=== PATIENT | female | born 1995 | race African-American/Black ===

== ENCOUNTER 2020-11-22 00:03 | Emergency (ER) | payer MEDICAID ==
--- NOTE | 2020-11-22 00:56 | EDM.PDOC ---
ED HPI GENERAL MEDICAL PROBLEM - General Chief Complaint: Lower Extremity Injury/Pain Stated Complaint: RIGHT ANKLE PAIN Time Seen by Provider: 11/22/20 00:53 Source of Information: Reports: Patient History Limitations: Reports: No Limitations - History of Present Illness INITIAL COMMENTS - FREE TEXT/NARRATIVE: Mrs. Mabry is a very pleasant 25-year-old woman who now presents the ED after twisting her right ankle around 16:00 to 17:00 this evening, when she missed a step while climbing down a stepladder. Other than right ankle pain, she is otherwise uninjured. She states that she has previously fractured her right ankle. The patient states that she has been taking Tylenol PM for her pain, without adequate relief. She has not iced her ankle. Here in the ED, the patient is found to be hemodynamically stable, afebrile, saturating 98% on room air. She appears to be comfortable, in no acute distress. Prior to this evening, the patient denies having a recent fever, chills, sore throat, ear pain, nasal or sinus congestion, cough, dyspnea, chest pain, palpitations, nausea, vomiting, constipation, diarrhea, abdominal pain, urinary symptoms, recent weight gain or weight loss, recent bloody bowel movements or black bowel movements, recent joint aches, headaches, or rashes. The patient's PCP is ARELIS Costello, at the [facility]. Right Ankle Pain Score (Numeric/FACES): 10 - Related Data Allergies Allergy/AdvReac Type Severity Reaction Status Date / Time No Known Allergies Allergy Verified 11/22/20 00:14 Home Meds: Home Meds ARIPiprazole [Abilify] 5 mg PO DAILY 11/22/20 [History] FLUoxetine [PROzac] 10 mg PO DAILY 11/22/20 [History] Sertraline [Zoloft] 25 mg PO DAILY 11/22/20 [History] Past Medical History Psychiatric History: Reports: Anxiety, Depression Endocrine/Metabolic History: Reports: Obesity/BMI 30+ - Past Surgical History HEENT Surgical History: Reports: Adenoidectomy, Oral Surgery (dental extractions), Tonsillectomy Female Surgical History: Reports: Section (x 2) Social & Family History - Tobacco Use Tobacco Use Status *Q: Never Tobacco User - Alcohol Use Alcohol Use History: Yes Alcohol Use Frequency: Socially - Recreational Drug Use Recreational Drug Use: No - Living Situation & Occupation Living situation: Reports: , with Spouse, with Family (2 kids) Occupation: Unemployed Review of Systems - Review of Systems Review Of Systems: Comprehensive ROS is negative, except as noted in HPI. ED EXAM, GENERAL - Physical Exam Exam: See Below Exam Limited By: No Limitations General Appearance: Alert, WD/WN, No Apparent Distress Extremities: Other (No visible abnormality to the right ankle, when compared to the left, such as swelling, erythema, ecchymosis, or abrasion. The patient reports tenderness to palpation over the medial malleolus, with no significant tenderness over the lateral malleolus, the anterior syndesmosis, or posterior syndesm) Course - Vital Signs Last Recorded V/S: Last Vital Signs Temp 36.6 C 11/22/20 00:11 Pulse 95 11/22/20 00:11 Resp 18 11/22/20 00:11 BP 127/83 11/22/20 00:11 Pulse Ox 98 11/22/20 00:11 - Orders/Labs/Meds Orders: Active Orders 24 hr Category Date Time Status Ankle Min 3V Rt [CR] Stat Exams 11/22/20 00:32 Taken DME for Discharge [COMM] Stat Oth 11/22/20 01:02 Ordered - Re-Assessments/Exams Free Text/Narrative Re-Assessment/Exam: 11/22/20 00:56 As above, the patient twisted her right ankle when she missed a step coming down a stepladder earlier this evening. There is no visible abnormality to the ankle, but she reports tenderness over the medial malleolus. X-rays were ordered at triage. 4-view radiographs of the right ankle appear to be grossly normal, with no fractures or dislocations identified. Formal read per the Radiologist pending. The patient appears to have a mild sprain. I will order an Aircast/stirrup splint and have the patient ambulate in that for about a week. She should ice and elevate her right ankle for the next few days to help minimize swelling. She can take [id number] ibuprofen as needed for discomfort. If she continues to have significant discomfort after 2 weeks, she should follow-up with an Orthopedic Surgeon - she stated that she already has one. Departure - Departure Time of Disposition: 01:10 Disposition: Home, Self-Care 01 Condition: Good Clinical Impression: Right ankle sprain - Discharge Information *PRESCRIPTION DRUG MONITORING PROGRAM REVIEWED*: Not Applicable *COPY OF PRESCRIPTION DRUG MONITORING REPORT IN PATIENT PONCHO: Not Applicable Referrals: Parul Henderson [Ordering Only Provider] - Forms: ED Department Discharge Additional Instructions: You were seen in the emergency room after twisting your right ankle while climbing down a stepladder yesterday afternoon. Work-up in the ER included x-rays of your right ankle, which returned to normal, with no broken bones or dislocations seen. Based on your history, physical examination, and ER x-rays, you have most likely sprained your right ankle. We recommend that you ice and elevate your right ankle as much as possible over the next few days, to help minimize swelling. You may take [id number]-[id number] ibuprofen, 3 tablets (600 mg) up to every 8 hours, with food, as needed for discomfort. You have been fitted with an air/stirrup splint. We recommend that you put this on every morning, and remove it at bedtime. We recommend that you wear it for approximately 1 week, after which time you should come out of it and start walking on your own without it. At that time, you should expect to have some discomfort, however, if you continue to have discomfort after 2 weeks, we recommend that you follow-up with your Orthopedic Surgeon. If any other problems, please do not hesitate to return to the ER. Sepsis Event Note (ED) - Evaluation Sepsis Screening Result: No Definite Risk - Focused Exam Vital Signs: Vital Signs Temp Pulse Resp BP Pulse Ox 11/22/20 00:11 36.6 C 95 18 127/83 98 - My Orders Last 24 Hours: My Active Orders 11/22/20 00:32 Ankle Min 3V Rt [CR] Stat 11/22/20 01:02 DME for Discharge [COMM] Stat - Assessment/Plan Last 24 Hours: My Active Orders 11/22/20 00:32 Ankle Min 3V Rt [CR] Stat 11/22/20 01:02 DME for Discharge [COMM] Stat
--- NOTE | 2020-11-22 09:01 | CR ---
Right ankle: 4 views of the right ankle were obtained. Comparison: No prior ankle study is available. Ankle mortise is symmetric. No acute fracture, dislocation or other bony abnormality is appreciated. Impression: 1. Nothing acute is seen on right ankle exam. Diagnostic code #1
== END 2020-11-22 01:15 | disposition home or self-care (01) ==
LOC: JD.ED 00:03
DX: S93.401A Sprain of unspecified ligament of right ankle, initial encounter (principal); E66.9 Obesity, unspecified; Z68.30 Body mass index [BMI] 30.0-30.9, adult; X50.1XXA Overexertion from prolonged static or awkward postures, initial encounter
CPT/HCPCS: 73610-26-RT; 73610-RT; 99283

== ENCOUNTER 2021-07-21 05:00 | Emergency (ER) | payer MEDICAID ==
[2021-07-21] MEDS ORDERED: Sodium Chloride 0.9% 1,000 ML IV ONE (05:17)
== END 2021-07-21 06:49 | disposition home or self-care (01) ==
LOC: JD.ED 05:00
DX: K80.20 Calculus of gallbladder without cholecystitis without obstruction (principal); E66.9 Obesity, unspecified; Z68.39 Body mass index [BMI] 39.0-39.9, adult
CPT/HCPCS: 36415; 80053; 83690; 85025; 99284; J7030

== ENCOUNTER 2021-12-15 21:38 | Inpatient (IN) | payer MEDICAID ==
[~2021-12-15 21:38] MED LIST: Bupivacaine 0.25% 10 ML SDV ONE; ePHEDrine 50 MG/ML SDV ONE
[2021-12-15] MEDS ORDERED: Oxytocin/Lactated Ringers 10 UNIT/1,000 ML BAG IV SCH (23:45)
[2021-12-15] MEDS ORDERED: Nalbuphine HCl 10 MG/ 1ML Amp IVPUSH PRN (23:58)
[2021-12-15] MEDS ORDERED: Famotidine 20 MG Tab PO PRN (23:58)
[2021-12-16] MEDS: Lactated Ringers 1,000 ML IV SCH ×2 (01:42→03:19)
[2021-12-16] MEDS ORDERED: fentaNYL 100 MCG/2 ML SDV EPIDUR PRN (01:54)
[2021-12-16] MEDS ORDERED: diphenhydrAMINE 50 MG/ML SDV IVPUSH PRN (01:54)
[2021-12-16] MEDS ORDERED: ePHEDrine 50 MG/ML SDV IVPUSH PRN (01:54)
[2021-12-16] MEDS ORDERED: Bupivacaine/fentaNYL/NS 100 ML Bag EPIDUR PRN (01:54)
[2021-12-16] MEDS ORDERED: Witch Hazel Medicated Pads 40/Jar TOP PRN (05:23)
[2021-12-16] MEDS ORDERED: Hydrocortisone Acetate 25 MG Supp RECTAL PRN (05:23)
[2021-12-16] MEDS ORDERED: Acetaminophen 325 MG Tab PO PRN (05:23)
[2021-12-16] MEDS ORDERED: Benzocaine/Menthol 20%-0.5% Spray 78 GM Cannister TOP PRN (05:23)
[2021-12-16] MEDS ORDERED: Docusate Sodium 100 MG Cap PO PRN (05:23)
[2021-12-16] MEDS ORDERED: Magnesium Hydroxide 400 MG/5 ML Susp 30 ML Cup PO PRN (05:23)
[2021-12-16] MEDS ORDERED: Oxytocin/Lactated Ringers 10 UNIT/1,000 ML BAG IV SCH ×2 (05:30)
[2021-12-16] MEDS: Prenatal Multivitamin with Calcium/Folic Acid/Iron Tab PO SCH (09:25)
[2021-12-16] MEDS: Ibuprofen 600 MG Tab PO PRN (14:34)
[2021-12-17] MEDS: Ibuprofen 600 MG Tab PO PRN (09:34)
[2021-12-17] MEDS: Prenatal Multivitamin with Calcium/Folic Acid/Iron Tab PO SCH (09:35)
== END 2021-12-17 11:53 | disposition home or self-care (01) | DRG 807 ==
LOC: JD.OBCHECK 21:38 → JD.OB 21:49 → OBSVTOIN 21:49 → JD.OB 12-16 04:38
PROVIDERS: ADMIT Obstetrics & Gynecology; ATTEND Obstetrics & Gynecology
PROC: 10E0XZZ Delivery of Products of Conception, External Approach (ICD-10-PCS; principal; 2021-12-16)
PROC: 0HQ9XZZ Repair Perineum Skin, External Approach (ICD-10-PCS; 2021-12-16)
PROC: 3E0R3BZ Introduction of Anesthetic Agent into Spinal Canal, Percutaneous Approach (ICD-10-PCS; 2021-12-16)
DX: O69.81X0 Labor and delivery complicated by cord around neck, without compression, not applicable or unspecified (principal); Z37.0 Single live birth; Z3A.40 40 weeks gestation of pregnancy; O48.0 Post-term pregnancy; O70.0 First degree perineal laceration during delivery; O76 Abnormality in fetal heart rate and rhythm complicating labor and delivery
CPT/HCPCS: 01967; 36415; 51702; 59025; 59409; 85025; 86592; 86850; 86900; 86901; A9270-GY; J2590; J3010; J3490; J7120